=== PATIENT | male | born 2000 | race Two or more races ===

== ENCOUNTER 2024-09-26 05:43 | Emergency (ER) | payer MEDICAID ==
[~2024-09-26] VITALS: Ht 177.8 cm; Wt 54.0 kg
--- NOTE | 2024-09-26 08:45 | ED.PDOC ---
History of Present Illness(SKN HPI Comments 24 year with hx of HIV, homeless presents for concerns over a wound x 3 days. Located to the lateral aspect of the fat pad. Associated with a tenderness to touch. Denies any drainage Has not tried medications for the symptoms. His fevers chills nausea vomiting diarrhea Chief Complaint: Back Pain Time Seen by MD: 06:45 History of Present Illness: Nurses Notes, Medications, Allergies Allergies: Coded Allergies: NO KNOWN ALLERGIES (Unverified , 09/26/24) Home Meds Active Scripts Sulfamethoxazole W/Trimethopri (Bactrim Ds Tablet) 1 Tab Tb, 1 TAB PO BID for 7 Days, #14 TAB 0 Refills Prov:JED DASH CAR RENTAL MANAGER 09/26/24 Information Source: Patient Mode of Arrival: EMS All Other Systems: Reviewed and Negative (Per HPI) Physical Exam General Appearance: No Apparent Distress, Normal HEENT: Normal ENT Inspection, Pharynx Normal, TMs Normal Neck: Full Range of Motion, Non-Tender, Normal, Normal Inspection Respiratory: Chest Non-Tender, Lungs Clear, No Accessory Muscle Use, No Respiratory Distress, Normal Breath Sounds Cardiovascular: No Edema, No JVD, No Murmur, No Gallop, Normal Peripheral Pulses, Regular Rate/Rhythm Breast Exam: Deferred Gastrointestinal: No Organomegaly, Non Tender, No Pulsatile Mass, Normal Bowel Sounds, Soft Genitalia: Deferred Pelvic: Deferred Rectal: Deferred Extremities: No calf tenderness, Normal capillary refill, Normal inspection, Normal range of motion, Non-tender, No pedal edema Musculoskeletal : Apperance: Normal Neurologic: Alert, emt p II-XII nml as Tested, No Motor Deficits, Normal Affect, Normal Mood, No Sensory Deficits Cerebellar Function: Normal Reflexes: Normal Skin: Dry, Normal Color, Warm Lymphatic: No Adenopathy Was a procedure done? Was a procedure done?: No Images 1 - 1 cm circular pin point wound with surrounding erythema. TTP. No draiange. No crepitus. full rom of phalanges and wrist. radial pulses 2+ Differential Diagnosis (INTG) Differential Diagnosis: Abrasion, Cellulitis, Fracture, Hematoma, Other Differential Diagnosis: Atopic dermatitis, Cellulitis X-Ray, Labs, Meds, VS Vital Signs Date Time Temp Pulse Resp B/P (MAP) Pulse Ox O2 Delivery O2 Flow Rate FiO2 1/20/25 08:49 98.4 84 18 132/82 (99) 99 98.4 09/26/24 08:49 86 18 99 Room Air 09/26/24 05:43 98.7 86 18 134/84 (101) 98 Current Medications Medications (Trade) Dose Ordered Sig/Sudhakar Route Start Time Stop Time Status Last Admin Ceftriaxone Sodium (Rocephin) 1,000 mg ONCE ONCE IM 09/26/24 08:45 09/26/24 08:56 DC 09/26/24 09:02 X-Ray, Labs, Meds, VS Comment This patient has elected to leave against medical advice. In my opinion, the patient has capacity to leave AMA. The patient is clinically sober, free from distracting injury, appears to have intact insight, judgment, and reason; therefore, the patient has the capacity to make decisions. I explained to the patient that these symptoms may represent a serious underlying medical condition and the patient verbalized understanding of my concerns and understands the consequences of leaving without complete evaluation. I had a discussion with the patient about their workup and results, and informed the patient what the next step in diagnosis and treatment would be, and they verbalized understanding of this as well. I explained the risks of leaving without further workup or treatment, which included reasonably foreseeable complications such as , serious injury, prolonged illness, and permanent disability. I discussed the specific benefits of additional treatment and also offered alternatives to departing AMA, such as assigning the patient a different provider or an alternate workup pathway. However, the patient declined and insisted on leaving against medical advice. I answered all of the patient's questions about their condition and I asked them to follow up with their PCP as soon as possible or return to this ER for further evaluation whenever they choose. Patient voiced understanding. Time of 1ST Reevaluation: 09:13 Reevaluation 1ST: Unchanged Patient Education/Counseling: Diagnosis, Treatment Family Education/Counseling: Diagnosis, Treatment Departure 1 Departure Time of Disposition: 09:14 Impression: Primary Impression: Left against medical advice Disposition: 07 LEFT AGAINST MEDICAL ADVICE Condition: Poor e-Prescriptions Sulfamethoxazole W/Trimethopri (Bactrim Ds Tablet) 1 Tab Tb 1 TAB PO BID for 7 Days, #14 TAB 0 Refills Prov: JED DASH CAR RENTAL MANAGER 09/26/24 Critical Care Note Critical Care Time?: No Stability Stability form required: No Heart Score Heart Score: Heart Score Response (Comments) Value History N/A 0 EKG N/A 0 Age N/A 0 Risk Factors N/A 0 Troponin N/A 0 Total 0 JED DASH NP Sep 26, 2024 08:45
[2024-09-26 08:49] VITALS: BP 132/82; PULSE 86; RESP 18; TEMP 98.4; O2SAT 99
[2024-09-26] MEDS: cefTRIAXone SOD 1,000 MG VL IM ONE (09:02)
[2024-09-26] MEDS ORDERED: BACDST PO (09:09)
== END 2024-09-26 09:22 | disposition left against medical advice (07) ==
LOC: ER 05:43
DX: R22.31 Localized swelling, mass and lump, right upper limb (principal); L53.9 Erythematous condition, unspecified
CPT/HCPCS: 96372; 99283; J0696

== ENCOUNTER 2025-02-26 02:21 | Emergency (ER) | payer OTHER, MEDICAID ==
[~2025-02-26] VITALS: Ht 177.8 cm; Wt 69.6 kg
[~2025-02-26 02:21] MED LIST: BACDST PO
[2025-02-26 02:57] VITALS: PULSE 91; RESP 16; O2SAT 98
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
[2025-02-26] MEDS ORDERED: TIZA-142 PO (04:46)
[2025-02-26] MEDS ORDERED: METH4PAK PO (04:46)
[2025-02-26 04:52] VITALS: BP 104/49; PULSE 85; RESP 20; TEMP 98.2; O2SAT 100
[2025-02-26] MEDS: IBUPROFEN 600 MG TAB PO ONE (04:58)
== END 2025-02-26 05:00 | disposition home or self-care (01) ==
LOC: ER 02:21
DX: S13.4XXA Sprain of ligaments of cervical spine, initial encounter (principal); S46.912A Strain of unspecified muscle, fascia and tendon at shoulder and upper arm level, left arm, initial encounter; Z88.0 Allergy status to penicillin; V43.52XA Car driver injured in collision with other type car in traffic accident, initial encounter; Y93.89 Activity, other specified; Y92.410 Unspecified street and highway as the place of occurrence of the external cause; Y99.8 Other external cause status
CPT/HCPCS: 72040; 73030